=== PATIENT | male | born 1965 | race Caucasian/White ===

== ENCOUNTER 2018-09-17 18:52 | Emergency (ER) | payer MEDICAID ==
[~2018-09-17] VITALS: Ht 182.9 cm; Wt 99.8 kg
[~2018-09-17 18:52] MED LIST: Benadryl 50 mg50 MG PO; Crutch1 EACH MISC; IBUP800 PO; NAPR500 PO; TRAM50 PO
[2018-09-17] MEDS ORDERED: IBUP800 PO (20:59)
== END 2018-09-17 21:03 | disposition home or self-care (01) ==
LOC: ER 18:52
DX: S93.401A Sprain of unspecified ligament of right ankle, initial encounter (principal); X50.9XXA Other and unspecified overexertion or strenuous movements or postures, initial encounter; Z88.5 Allergy status to narcotic agent; Z88.0 Allergy status to penicillin; I10 Essential (primary) hypertension; F17.200 Nicotine dependence, unspecified, uncomplicated
CPT/HCPCS: 73610; 99283-25

== ENCOUNTER 2019-09-06 17:32 | Emergency (ER) | payer OTHER ==
[~2019-09-06] VITALS: Ht 182.9 cm; Wt 109.3 kg
[2019-09-06 18:03] LABS: BASOPHILS ABSOLUTE AUTO 0.09 K/mm3 (0.00-0.23); BASOPHILS PERCENT AUTO 1 % (0-2); EOSINOPHILS ABSOLUTE AUTO 0.39 K/mm3 (0.00-0.68); EOSINOPHILS PERCENT AUTO 4 % (0-6); Hematocrit 47.3 % (37.0-53.0); Hemoglobin 15.6 g/dL (13.5-17.5); IMMATURE GRAN ABSOLUTE AUTO 0.02 K/mm3 (0.00-0.10); IMMATURE GRAN PERCENT AUTO 0 % (0-1); LYMPHOCYTES PERCENT AUTO 24 % (21-46); MONOCYTES ABSOLUTE AUTO 0.85 K/mm3 (0.16-1.47); MONOCYTES PERCENT AUTO 8 % (4-13); Mean Corpuscular HGB 30.2 pg (26.0-34.0); Mean Corpuscular Volume 92 fL (80-100); Mean Platelet Volume 9.8 fL (9.1-12.4); NEUTROPHILS ABSOLUTE AUTO 6.46 K/mm3 (1.96-9.15); NEUTROPHILS PERCENT AUTO 63 % (41-73); Platelet Count 275 K/mm3 (150-400); RDW Coefficient Variation 12.8 % (11.7-14.2); RDW Standard Deviation 43.1 fL (35.1-46.3); Red Blood Cell Count 5.17 M/mm3 (4.30-5.90); White Blood Cell Count 10.21 K/mm3 (4.00-11.30)
[2019-09-06 18:38] LABS: Troponin I 0.107 ng/mL (0.000-0.040)
[2019-09-06 18:39] LABS: Alanine Aminotransfer (ALT/SGP 32 U/L (12-78); Albumin, Blood 3.2 g/dL (3.4-5.0); Albumin/Globulin Ratio 0.8 (0.8-1.8); Alk Phos 103 U/L (50-136); Anion Gap 3 mmol/L (6-16); Aspartate Aminotrans (AST/SGOT 13 U/L (12-37); Bilirubin, Total 0.3 mg/dL (0.1-1.0); Blood Urea Nitrogen 14 mg/dL (8-24); Bun/Creatinine Ratio 12.4 (12.0-20.0); CO2, Blood 29 mmol/L (21-32); Calcium, Blood 8.6 mg/dL (8.5-10.1); Chloride, Blood 108 mmol/L (98-108); Creatinine, Blood 1.13 mg/dL (0.60-1.20); Globulin, Blood 3.8 g/dL (2.2-4.0); Glomerular Filtration Rate >60 (60-); Glucose, Blood 109 mg/dL (70-99); Sodium, Blood 140 mmol/L (136-145)
[2019-09-06] MEDS ORDERED: HYDCHL25 PO (21:57)
== END 2019-09-06 22:05 | disposition home or self-care (01) ==
LOC: ER 17:32
PROVIDERS: Emergency Medicine
DX: I21.4 Non-ST elevation (NSTEMI) myocardial infarction (principal); I10 Essential (primary) hypertension; R79.89 Other specified abnormal findings of blood chemistry; R60.0 Localized edema; Z88.0 Allergy status to penicillin; Z88.5 Allergy status to narcotic agent; Z87.891 Personal history of nicotine dependence
CPT/HCPCS: 36415; 71046; 80053; 83880; 84484; 85025; 93005; 93010; 96374; 99284-25

== ENCOUNTER 2019-10-11 12:45 | Emergency (ER) | payer OTHER ==
[~2019-10-11] VITALS: Ht 182.9 cm; Wt 105.2 kg
[~2019-10-11 12:45] MED LIST changes: +HYDCHL25 PO
[2019-10-11] MEDS ORDERED: ERYT1OIN RIGHTEYE (14:53)
== END 2019-10-11 15:07 | disposition home or self-care (01) ==
LOC: ER 12:45
DX: H10.9 Unspecified conjunctivitis (principal)
CPT/HCPCS: 99283

== ENCOUNTER 2023-03-25 15:24 | Emergency (ER) | payer OTHER ==
[~2023-03-25] VITALS: Ht 182.9 cm; Wt 130.6 kg
[~2023-03-25 15:24] MED LIST changes: -TOPROL XL25 MG PO
[2023-03-25 16:46] LABS: Calcium, Blood 8.7 mg/dL (8.5-10.1); Creatinine, Blood 0.92 mg/dL (0.60-1.20); Potassium, Blood 3.9 mmol/L (3.5-5.5)
[2023-03-25 17:30] VITALS: BP 168/116
[2023-03-25] MEDS ORDERED: TOPROL XL25 MG PO (17:32)
== END 2023-03-25 18:06 | disposition home or self-care (01) ==
LOC: ER 15:24
PROVIDERS: Physician Assistant
DX: I10 Essential (primary) hypertension (principal); R77.8 Other specified abnormalities of plasma proteins; Z88.0 Allergy status to penicillin; Z88.5 Allergy status to narcotic agent; Z79.899 Other long term (current) drug therapy; Z79.82 Long term (current) use of aspirin
CPT/HCPCS: 80048; 84484; 93005; 93010; 99284-25; A9270

== ENCOUNTER → 2023-03-25 | Outpatient (CLI) | payer OTHER ==
[~2023-03-25] MED LIST changes: +ATOR20 PO; +ERYT1OIN RIGHTEYE; +LOW DOSE ASPIRI81 M1 PO; +METOPROLOL TART25 MG PO; +Nitrostat0.3 MG SL; +PRINIVIL10 MG PO; +TOPROL XL25 MG PO
[2023-03-25 13:16] LABS: BASOPHILS ABSOLUTE AUTO 0.09 K/mm3 (0.00-0.23); BASOPHILS PERCENT AUTO 1 % (0-2); EOSINOPHILS ABSOLUTE AUTO 0.25 K/mm3 (0.00-0.68); EOSINOPHILS PERCENT AUTO 3 % (0-6); Hematocrit 48.9 % (37.0-53.0); Hemoglobin 16.7 g/dL (13.5-17.5); IMMATURE GRAN ABSOLUTE AUTO 0.03 K/mm3 (0.00-0.10); IMMATURE GRAN PERCENT AUTO 0 % (0-1); LYMPHOCYTES ABSOLUTE AUTO 2.33 K/mm3 (0.84-5.20); LYMPHOCYTES PERCENT AUTO 27 % (21-46); MONOCYTES ABSOLUTE AUTO 0.72 K/mm3 (0.16-1.47); MONOCYTES PERCENT AUTO 8 % (4-13); Mean Corpuscular HGB 29.6 pg (26.0-34.0); Mean Corpuscular HGB Conc 34.2 g/dL (31.5-36.5); Mean Corpuscular Volume 87 fL (80-100); Mean Platelet Volume 9.9 fL (9.1-12.4); NEUTROPHILS ABSOLUTE AUTO 5.32 K/mm3 (1.96-9.15); NEUTROPHILS PERCENT AUTO 61 % (41-73); Platelet Count 272 K/mm3 (150-400); RDW Coefficient Variation 13.3 % (11.7-14.2); RDW Standard Deviation 41.2 fL (35.1-46.3); Red Blood Cell Count 5.64 M/mm3 (4.30-5.90); White Blood Cell Count 8.74 K/mm3 (4.00-11.30)
[2023-03-25 13:25] LABS: Albumin, Blood 3.4 g/dL (3.4-5.0); Albumin/Globulin Ratio 0.8 (0.8-1.8); Bilirubin, Total 0.6 mg/dL (0.1-1.0); Bun/Creatinine Ratio 10.1 (12.0-20.0); Calcium, Blood 9.1 mg/dL (8.5-10.1); Creatinine, Blood 1.09 mg/dL (0.60-1.20); Globulin, Blood 4.5 g/dL (2.2-4.0); Potassium, Blood 4.2 mmol/L (3.5-5.5); Total Protein, Blood 7.9 g/dL (6.4-8.2)
== END ==
LOC: LAB SHORT 13:03 → LAB 13:03
PROVIDERS: Chiropractor
DX: R53.83 Other fatigue (principal); R60.0 Localized edema; Z68.39 Body mass index [BMI] 39.0-39.9, adult
CPT/HCPCS: 80053; 83036; 83880; 84443; 84484; 85025

== ENCOUNTER 2023-09-10 19:52 | Emergency (ER) | payer OTHER ==
[~2023-09-10] VITALS: Ht 182.9 cm; Wt 116.6 kg
[~2023-09-10 19:52] MED LIST changes: +TOPROL XL25 MG PO
[2023-09-10 20:20] LABS: BASOPHILS ABSOLUTE AUTO 0.05 K/mm3 (0.00-0.23); BASOPHILS PERCENT AUTO 1 % (0-2); EOSINOPHILS ABSOLUTE AUTO 0.29 K/mm3 (0.00-0.68); EOSINOPHILS PERCENT AUTO 3 % (0-6); Hematocrit 46.2 % (37.0-53.0); Hemoglobin 15.2 g/dL (13.5-17.5); IMMATURE GRAN ABSOLUTE AUTO 0.02 K/mm3 (0.00-0.10); IMMATURE GRAN PERCENT AUTO 0 % (0-1); LYMPHOCYTES ABSOLUTE AUTO 0.68 K/mm3 (0.84-5.20); LYMPHOCYTES PERCENT AUTO 8 % (21-46); MONOCYTES ABSOLUTE AUTO 0.69 K/mm3 (0.16-1.47); MONOCYTES PERCENT AUTO 8 % (4-13); Mean Corpuscular HGB 29.5 pg (26.0-34.0); Mean Corpuscular HGB Conc 32.9 g/dL (31.5-36.5); Mean Corpuscular Volume 90 fL (80-100); Mean Platelet Volume 9.7 fL (9.1-12.4); NEUTROPHILS ABSOLUTE AUTO 6.69 K/mm3 (1.96-9.15); NEUTROPHILS PERCENT AUTO 80 % (41-73); Platelet Count 209 K/mm3 (150-400); RDW Standard Deviation 42.5 fL (35.1-46.3); Red Blood Cell Count 5.16 M/mm3 (4.30-5.90); White Blood Cell Count 8.42 K/mm3 (4.00-11.30)
[2023-09-10] MEDS ORDERED: LOSA50 PO (20:25)
[2023-09-10] MEDS ORDERED: METO50ER PO (20:26)
[2023-09-10 20:50] LABS: Albumin, Blood 3.2 g/dL (3.4-5.0); Albumin/Globulin Ratio 0.8 (0.8-1.8); Bilirubin, Total 0.4 mg/dL (0.1-1.0); Bun/Creatinine Ratio 13.7 (12.0-20.0); Calcium, Blood 8.7 mg/dL (8.5-10.1); Creatinine, Blood 0.95 mg/dL (0.60-1.20); Globulin, Blood 4.1 g/dL (2.2-4.0); Total Protein, Blood 7.3 g/dL (6.4-8.2)
[2023-09-10 21:00] VITALS: BP 106/64
[2023-09-10] MEDS ORDERED: Albuterol 2.5 MG/3 ML VIAL INH SCH (21:25)
[2023-09-10 23:10] LABS: Influenza A, PCR NEGATIVE (NEGATIVE); Influenza B, PCR NEGATIVE (NEGATIVE); Resp Syncytial Virus, PCR NEGATIVE (NEGATIVE)
[2023-09-10 23:12] LABS: SARS-Cov-2 (COVID-19) PCR, MMC POSITIVE (NEGATIVE)
== END 2023-09-10 23:20 | disposition left against medical advice (07) ==
LOC: ER 19:52
PROVIDERS: Student in an Organized Health Care Education/Training Program
DX: U07.1 COVID-19 (principal); J06.9 Acute upper respiratory infection, unspecified; I10 Essential (primary) hypertension; F17.210 Nicotine dependence, cigarettes, uncomplicated; Z53.29 Procedure and treatment not carried out because of patient's decision for other reasons; Z88.5 Allergy status to narcotic agent; Z88.0 Allergy status to penicillin; Z79.899 Other long term (current) drug therapy; Z79.82 Long term (current) use of aspirin
CPT/HCPCS: 0241U; 71046; 80053; 83880; 84484; 85025; 93005; 93010; 94644; 94664; 99284-25

== ENCOUNTER → 2024-01-11 | Outpatient (CLI) | payer OTHER ==
[~2024-01-11] MED LIST changes: +LOSA50 PO; +METO50ER PO
[2024-01-11 13:56] LABS: BASOPHILS ABSOLUTE AUTO 0.07 K/mm3 (0.00-0.23); BASOPHILS PERCENT AUTO 1 % (0-2); EOSINOPHILS ABSOLUTE AUTO 0.31 K/mm3 (0.00-0.68); EOSINOPHILS PERCENT AUTO 4 % (0-6); Hematocrit 44.5 % (37.0-53.0); Hemoglobin 14.5 g/dL (13.5-17.5); IMMATURE GRAN ABSOLUTE AUTO 0.02 K/mm3 (0.00-0.10); IMMATURE GRAN PERCENT AUTO 0 % (0-1); LYMPHOCYTES ABSOLUTE AUTO 1.98 K/mm3 (0.84-5.20); LYMPHOCYTES PERCENT AUTO 23 % (21-46); MONOCYTES ABSOLUTE AUTO 0.69 K/mm3 (0.16-1.47); MONOCYTES PERCENT AUTO 8 % (4-13); Mean Corpuscular HGB 29.2 pg (26.0-34.0); Mean Corpuscular HGB Conc 32.6 g/dL (31.5-36.5); Mean Corpuscular Volume 90 fL (80-100); Mean Platelet Volume 10.4 fL (9.1-12.4); NEUTROPHILS ABSOLUTE AUTO 5.74 K/mm3 (1.96-9.15); NEUTROPHILS PERCENT AUTO 65 % (41-73); Platelet Count 258 K/mm3 (150-400); RDW Standard Deviation 42.5 fL (35.1-46.3); Red Blood Cell Count 4.97 M/mm3 (4.30-5.90); White Blood Cell Count 8.81 K/mm3 (4.00-11.30)
[2024-01-11 14:21] LABS: LDL/HDL RATIO 3.2; Very Low Density Lipoprot Chol 20 mg/dL (6-32)
[2024-01-11 14:22] LABS: Alanine Aminotransfer (ALT/SGP 33 U/L (12-78); Albumin, Blood 3.1 g/dL (3.4-5.0); Albumin/Globulin Ratio 0.8 (0.8-1.8); Alk Phos 117 U/L (50-136); Anion Gap 8 mmol/L (3-11); Aspartate Aminotrans (AST/SGOT 17 U/L (12-37); Bilirubin, Total 0.5 mg/dL (0.1-1.0); Blood Urea Nitrogen 10 mg/dL (8-24); CHOL/HDL RATIO 4.8; CO2, Blood 28 mmol/L (21-32); Calcium, Blood 8.7 mg/dL (8.5-10.1); Chloride, Blood 108 mmol/L (98-108); Cholesterol 163 mg/dL (50-200); Creatinine, Blood 0.77 mg/dL (0.60-1.20); Globulin, Blood 4.1 g/dL (2.2-4.0); Glomerular Filtration Rate 104 (60-); Glucose, Blood 208 mg/dL (70-99); HDL Cholesterol 34 mg/dL (>39); Low Density Lipoprotein Chol 109 mg/dL (0-110); Potassium, Blood 3.7 mmol/L (3.5-5.5); Sodium, Blood 140 mmol/L (136-145); Total Protein, Blood 7.2 g/dL (6.4-8.2); Triglycerides 102 mg/dL (30-160)
== END ==
LOC: LAB SHORT 10:00 → LAB 10:00
DX: Z13.220 Encounter for screening for lipoid disorders (principal); I10 Essential (primary) hypertension
CPT/HCPCS: 80053; 80061; 83036; 85025

== ENCOUNTER 2024-04-23 19:47 | Inpatient (IN) | payer OTHER ==
[~2024-04-23] VITALS: Ht 177.8 cm; Wt 125.4 kg
[~2024-04-23 19:47] MED LIST changes: +Lactated Ringer's 1,000 ML IV SCH
[2024-04-23] MEDS ORDERED: Ondansetron HCl 2 MG / ML 2ML Vial IV PRN ×2 (20:15→23:45)
[2024-04-23 20:34] LABS: BASOPHILS ABSOLUTE AUTO 0.08 K/mm3 (0.00-0.23); BASOPHILS PERCENT AUTO 1 % (0-2); EOSINOPHILS ABSOLUTE AUTO 0.16 K/mm3 (0.00-0.68); EOSINOPHILS PERCENT AUTO 1 % (0-6); Hematocrit 48.5 % (37.0-53.0); Hemoglobin 17.2 g/dL (13.5-17.5); IMMATURE GRAN ABSOLUTE AUTO 0.06 K/mm3 (0.00-0.10); IMMATURE GRAN PERCENT AUTO 1 % (0-1); LYMPHOCYTES ABSOLUTE AUTO 2.17 K/mm3 (0.84-5.20); LYMPHOCYTES PERCENT AUTO 17 % (21-46); MONOCYTES ABSOLUTE AUTO 0.76 K/mm3 (0.16-1.47); MONOCYTES PERCENT AUTO 6 % (4-13); Mean Corpuscular HGB 29.5 pg (26.0-34.0); Mean Corpuscular HGB Conc 35.5 g/dL (31.5-36.5); Mean Corpuscular Volume 83 fL (80-100); NEUTROPHILS ABSOLUTE AUTO 9.76 K/mm3 (1.96-9.15); NEUTROPHILS PERCENT AUTO 75 % (41-73); Platelet Count 334 K/mm3 (150-400); RDW Coefficient Variation 13.1 % (11.7-14.2); RDW Standard Deviation 39.3 fL (35.1-46.3); Red Blood Cell Count 5.83 M/mm3 (4.30-5.90); White Blood Cell Count 12.99 K/mm3 (4.00-11.30)
[2024-04-23 21:04] LABS: Albumin, Blood 3.4 g/dL (3.4-5.0); Albumin/Globulin Ratio 0.8 (0.8-1.8); Bilirubin, Total 1.1 mg/dL (0.1-1.0); Bun/Creatinine Ratio 24.5 (12.0-20.0); Calcium, Blood 9.6 mg/dL (8.5-10.1); Creatinine, Blood 1.06 mg/dL (0.60-1.20); Globulin, Blood 4.2 g/dL (2.2-4.0); Potassium, Blood 4.7 mmol/L (3.5-5.5); Total Protein, Blood 7.6 g/dL (6.4-8.2)
[2024-04-23 21:29] LABS: Influenza A, PCR NEGATIVE (NEGATIVE); Influenza B, PCR NEGATIVE (NEGATIVE); Resp Syncytial Virus, PCR NEGATIVE (NEGATIVE); SARS-Cov-2 (COVID-19) PCR, MMC NEGATIVE (NEGATIVE)
[2024-04-23] MEDS ORDERED: NS 1,000 ML IV SCH ×2 (22:15→23:15)
[2024-04-23 22:33] LABS: Base Excess Venous -3.8 mmol/L; Bicarbonate Venous 21.2 mmol/L (24.0-30.0); PCO2 Venous 42.2 mmHg (38-42); pH Blood Venous 7.33 (7.34-7.37)
[2024-04-23 22:36] LABS: Beta-hydroxybutyrate 21.1 mg/dL (0.2-2.8)
[2024-04-23] MEDS ORDERED: NS KCl 20mEq 1,000 ML IV SCH (23:15)
[2024-04-23] MEDS ORDERED: Insulin Human Regular 100 UNIT in NS 100 ML IV SCH (23:20)
[2024-04-23] MEDS ORDERED: Dextrose 50% 50 ML Vial IV PRN (23:45)
[2024-04-23] MEDS ORDERED: Acetaminophen 325 MG TABLET PO PRN (23:55)
[2024-04-23] MEDS ORDERED: FLU VACC TS2024-25(6MOS UP)/PF 45 MCG/0.5 ML SYRINGE IM SCH (23:55)
[2024-04-24] VITALS (33 sets, daily range): BP systolic 97–149; BP diastolic 60–119
[2024-04-24 00:16] LABS: Source, Urine Clean Catch
[2024-04-24 00:22] LABS: Appearance, Urine Clear (Clear); Bilirubin, Urine Neg (Neg); Blood, Urine Neg (Neg); Color, Urine Yellow (P-Yellow); Glucose Qualitative, Urine 4+ (Neg); Ketones, Urine 2+ (Neg); Leukocyte Esterase, Urine Neg (Neg); Nitrite, Urine Neg (Neg); Protein, Urine Neg (Neg); Urobilinogen, Urine NORM (Normal)
[2024-04-24] MEDS ORDERED: ATOR40TA PO (00:51)
[2024-04-24] MEDS ORDERED: DICLOFENAC SOD100 GM TP (00:52)
[2024-04-24 00:53] LABS: Bun/Creatinine Ratio 21.6 (12.0-20.0); Creatinine, Blood 1.11 mg/dL (0.60-1.20); Potassium, Blood 4.9 mmol/L (3.5-5.5)
[2024-04-24] MEDS ORDERED: NITR.4SL SL (00:53)
--- NOTE | 2024-04-24 01:21 | NUR ---
ARRIVAL TO ICU: RECEIVED REPORT FROM KEN ESTRADA. PT ARRIVED TO ICU BED 15 VIA GURNEY AT 0045. PT ABLE TO STAND AND TRANSFER TO ICU BED WITH NURSE ASSIST. PT ALERT AND ORIENTED. FOLLOWS COMMANDS AND ANSWERS QUESTIONS. PT ON RA WITH SPO2 HIGH 90'S. LUNGS CLEAR/DIM. PUPILS EQUAL AND REACTIVE. GRADUATING MACHINE OPERATOR IN PLACE, SR WITH HR 80'S. SBP 110'S-130'S. DENIES CHEST PAIN/PRESSURE. INSULIN DRIP AT 10 UNITS/HR. NS WITH KCL AT 250 ML/HR. NS BOLUS WIDE OPEN. PIVS TO LH AND RAC BOTH PATENT AND INFUSING. PT DENIES N/V OR PAIN. RR 17-20. ABLE TO VOID INTO URINAL. NO BM YET. PT DAUGHTER AT THE BEDSIDE, UPDATED TO PLAN OF CARE. BED LOW AND LOCKED, CALL LIGHT IN REACH. TOLERATING ICE CHIPS.
[2024-04-24 01:30] LABS: Glucose, Blood 564 mg/dL (70-99)
[2024-04-24 02:23] LABS: Glucose, Blood 446 mg/dL (70-99)
[2024-04-24 04:45] LABS: Bun/Creatinine Ratio 24.1 (12.0-20.0); Calcium, Blood 8.8 mg/dL (8.5-10.1); Creatinine, Blood 0.87 mg/dL (0.60-1.20)
[2024-04-24 05:24] LABS: Potassium, Blood 4.3 mmol/L (3.5-5.5)
[2024-04-24] MEDS ORDERED: D5W-1/2NS KCl 20mEq 1,000 ML IV SCH (05:25)
--- NOTE | 2024-04-24 05:30 | NUR ---
SHIFT SUMMARY: NO ACUTE CHANGES SINCE ARRIVAL TO ICU. INSULIN DRIP AT 4 UNITS/HR. D5 1/2 AT 200 ML/HR. REMAINS ALERT AND ORIENTED. PIVS INTACT. DAUGHTER AT BEDSIDE. ABLE TO STAND AT BEDSIDE TO URINATE. NO BM THIS SHIFT. PT IN SR WITH HR 80'S. SBP 120'S. ON RA WITH SPO2 90'S. OCCASIONALLY DESATS TO MID 80'S WHILE SLEEPING BUT DOES NOT SUSTAIN. DENIES SOB, DENIES N/V. TOLERATING ICE CHIPS. BED LOW AND LOCKED, CALL LIGHT IN REACH.
--- NOTE | 2024-04-24 08:40 | NUR ---
SHIFT ASSESSMENT ASSUMED CARE OF PT @ 0700, BEDSIDE REPORT RECEIVED FORM CHANI. INSULIN GTT @ 4.5U/HR AND D5 KCL INFUSING. Q1HR GLUCOSE CHECKS. PT A&OX4, AMBULATES WITH SBA, POSITIONING SELF TO COMFORT. COOPERATIVE BUT NOT HAPPY ABOUT NPO STATUS. THIS RN ENSURED PT THAT HE WILL GET TO EAT SOON. THIS RN ALSO INTRODUCED PT TO THE PARAMETERS OF A DIABETIC FRIENDLY DIET. PT ADMITS TO ENJOYING SUGARY DRINKS REGULARLY. EDGE TRIMMING MACHINE OPERATOR CONSULT ORDERED.
[2024-04-24] MEDS ORDERED: Enoxaparin 40 MG/0.4 ML SYR SC SCH (09:00)
[2024-04-24 09:01] LABS: Bun/Creatinine Ratio 18.6 (12.0-20.0); Calcium, Blood 8.2 mg/dL (8.5-10.1); Creatinine, Blood 1.02 mg/dL (0.60-1.20); Potassium, Blood 3.9 mmol/L (3.5-5.5)
[2024-04-24] MEDS ORDERED: Insulin Glargine-Yfgn 100 Unit/mL 3 ML SYR SC ONE (09:50)
[2024-04-24] MEDS ORDERED: Clindamycin 900mg in D5W 50ML 50 ML IV SCH (10:02)
[2024-04-24] MEDS ORDERED: Insulin Human Lispro 100 Units/ML 3ML Syringe SC SCH (12:00)
[2024-04-24 13:30] LABS: Bun/Creatinine Ratio 19.2 (12.0-20.0); Calcium, Blood 8.1 mg/dL (8.5-10.1); Creatinine, Blood 1.04 mg/dL (0.60-1.20)
[2024-04-24] MEDS ORDERED: Lactated Ringer's 1,000 ML IV SCH (13:50)
[2024-04-24] MEDS ORDERED: MetFORMIN HCl 500 mg PO SCH (17:00)
[2024-04-24 17:03] LABS: Bun/Creatinine Ratio 19.4 (12.0-20.0); Calcium, Blood 8.3 mg/dL (8.5-10.1); Creatinine, Blood 1.03 mg/dL (0.60-1.20); Potassium, Blood 4.2 mmol/L (3.5-5.5)
--- NOTE | 2024-04-24 18:12 | NUR ---
SHIFT SUMMARY PATIENT REMAINS A&OX4, OFF OF INSULIN GTT, TRANSITIONED TO HIGH SS LISPRO Q6HR. PATIENT TOLERATING PO INTAKE WELL. WORKED WITH PHYSICAL THERAPY (PT) THIS AFTERNOON, SEE PT NOTE. ALSO CONSULTED WITH DIETITIAN TODAY, INFORMATION GIVEN FOR DIET CHANGES. USING URINAL, NO BM. NO OTHER ACUTE CHANGES. CURRENTLY MEDICAL STATUS.
--- NOTE | 2024-04-24 23:10 | NUR ---
ASSUMPTION OF CARE/ASSESSMENT: ASSUMED CARE OF PT @ 1900, BEDSIDE SHIFT REPORT RECIEVED FROM AVRIL RN. PT IN ROOM, A&O X 4, COOPERATIVE WITH CARE. FAMILY UPDATED ON TREATMENT PLAN BY AVR[facility] WITH INFORMATION REGARDING POTENTIONAL DISCHARGE TOMORROW. PT EXPRESSES DESIRE TO SPEAK WITH STATION ENGINEER PRIOR TO DISCHARGE; PT'S DAUGHTER PLANS TO BE HERE AROUND 0900 TO SEE ABOUT TALKING WITH STATION ENGINEER. PT ON NC @ 2-5 LPM, SPO2 94<, FREQUENT DESATS OBSERVED DOWN TO 70'S BUT RECOVERS TO 90'S. LUNGS CLEAR T/O, DIM BASES. PT SR ON MONITOR, HR 80-90'S, SBP 140'S, AND DENIES CHEST PAIN/PRESSURE. PT MINIMAL ASSIST IN ROOM WITH ADL'S. URINAL AT BEDSIDE. BED LOWERED, CALL LIGHT IN REACH.
[2024-04-25 03:48] LABS: BASOPHILS ABSOLUTE AUTO 0.07 K/mm3 (0.00-0.23); BASOPHILS PERCENT AUTO 1 % (0-2); EOSINOPHILS ABSOLUTE AUTO 0.25 K/mm3 (0.00-0.68); EOSINOPHILS PERCENT AUTO 3 % (0-6); Hematocrit 42.3 % (37.0-53.0); Hemoglobin 14.4 g/dL (13.5-17.5); IMMATURE GRAN ABSOLUTE AUTO 0.03 K/mm3 (0.00-0.10); IMMATURE GRAN PERCENT AUTO 0 % (0-1); LYMPHOCYTES ABSOLUTE AUTO 2.39 K/mm3 (0.84-5.20); LYMPHOCYTES PERCENT AUTO 30 % (21-46); MONOCYTES ABSOLUTE AUTO 0.64 K/mm3 (0.16-1.47); MONOCYTES PERCENT AUTO 8 % (4-13); Mean Corpuscular Volume 88 fL (80-100); Mean Platelet Volume 10.6 fL (9.1-12.4); NEUTROPHILS ABSOLUTE AUTO 4.69 K/mm3 (1.96-9.15); NEUTROPHILS PERCENT AUTO 58 % (41-73); Platelet Count 191 K/mm3 (150-400); RDW Coefficient Variation 13.1 % (11.7-14.2); RDW Standard Deviation 42.3 fL (35.1-46.3); White Blood Cell Count 8.07 K/mm3 (4.00-11.30)
[2024-04-25 04:09] VITALS: BP 163/101
[2024-04-25 04:11] LABS: Albumin, Blood 2.6 g/dL (3.4-5.0); Albumin/Globulin Ratio 0.8 (0.8-1.8); Bilirubin, Total 0.7 mg/dL (0.1-1.0); Bun/Creatinine Ratio 14.9 (12.0-20.0); Calcium, Blood 8.2 mg/dL (8.5-10.1); Creatinine, Blood 0.94 mg/dL (0.60-1.20); Globulin, Blood 3.3 g/dL (2.2-4.0); Potassium, Blood 4.1 mmol/L (3.5-5.5); Total Protein, Blood 5.9 g/dL (6.4-8.2)
--- NOTE | 2024-04-25 04:14 | NUR ---
CALL TO PT DAUGHTER MARLO TO INFORM OF PT TRANSFER TO NEW ROOM, NO ANSWER. PT STATES HE WILL CALL HER LATER.
--- NOTE | 2024-04-25 04:19 | NUR ---
REPORT FROM FADUMO PATIENT ARRIVED FORM ICU VIA W/C AT 0400. BED ZEROED AND BED WEIGHT OBTAINED. IV PLACED ON PUMP AT ORDERED RATE. ALERT ORIENTED, CALL LIGHT NEAR. BED ALARM ON.
[2024-04-25] MEDS ORDERED: Losartan Potassium 25 MG Tab PO ONE (07:00)
[2024-04-25 07:26] VITALS: BP 147/99
[2024-04-25] MEDS ORDERED: Atorvastatin 40 MG Tab PO SCH (09:00)
[2024-04-25] MEDS ORDERED: Losartan Potassium 50 MG Tab PO SCH (09:00)
[2024-04-25] MEDS ORDERED: Metoprolol Succinate 50 MG TABCR PO SCH ×2 (09:00→21:00)
[2024-04-25] MEDS ORDERED: Aspirin 81 MG Chew PO SCH (09:00)
[2024-04-25] MEDS ORDERED: Lactobacil 2-S.Thermo-Bifido 1 1 Cap PO SCH (09:00)
[2024-04-25] MEDS ORDERED: Losartan Potassium 25 MG Tab PO SCH ×2 (09:00)
[2024-04-25] MEDS ORDERED: Metoprolol Succinate 25 MG TABCR PO SCH (09:00)
[2024-04-25] MEDS ORDERED: Insulin Human Lispro 100 Units/ML 3ML Syringe SC SCH ×3 (09:10→11:30)
[2024-04-25 10:28] VITALS: BP 113/98
[2024-04-25] MEDS ORDERED: CLIN150 PO (15:16)
[2024-04-25] MEDS ORDERED: VISBIOME 112.51 EACH PO (15:16)
[2024-04-25] MEDS ORDERED: METF500 PO (15:17)
--- NOTE | 2024-04-25 15:48 | NUR ---
DISCHARGE NOTE PT DISCHARGED HOME AT 1545. PT AND PT'S DAUGHTER PROVIDED W/ VERBAL AND WRITTEN INSTRUCTIONS AND REPORTED UNDERSTANDING. PT A&OX4, VSS. AMB W/ SBA, TOLERATING PO, VOIDING, AND DENIED PAIN. BELONGINGS WERE RETURNED AND PT ESCOURTED OUT BY DAUGHTER VIA W/C.
[2024-04-26] MEDS ORDERED: Losartan Potassium 25 MG Tab PO SCH (09:00)
== END 2024-04-25 15:44 | disposition home health service (06) | DRG 638 ==
LOC: ER 19:47 → ICUE 23:54 → MEDS 04-25 03:55
PROVIDERS: Emergency Medicine; Internal Medicine; Student in an Organized Health Care Education/Training Program; ADMIT Student in an Organized Health Care Education/Training Program
DX: E11.10 Type 2 diabetes mellitus with ketoacidosis without coma (principal); Z68.41 Body mass index [BMI] 40.0-44.9, adult; K04.7 Periapical abscess without sinus; I10 Essential (primary) hypertension; F10.20 Alcohol dependence, uncomplicated; E86.0 Dehydration; Z91.81 History of falling; Z87.891 Personal history of nicotine dependence; Z98.890 Other specified postprocedural states; Z88.0 Allergy status to penicillin; Z88.8 Allergy status to other drugs, medicaments and biological substances; Z79.899 Other long term (current) drug therapy; Z79.82 Long term (current) use of aspirin
CPT/HCPCS: 0241U; 36415; 80048; 80053; 81003; 82010; 82803; 82947; 83036; 83690; 83735; 84100; 85025; 93005; 93010; 96361; 96374; 97110; 97116; 97162; 97530; 99285-25; A9270; J1650; J1815; J2405; J3480; J7030; J7120

== ENCOUNTER 2024-07-05 07:49 | Day surgery (SDC) | payer OTHER ==
[~2024-07-05] VITALS: Ht 182.9 cm; Wt 129.6 kg
[~2024-07-05 07:49] MED LIST changes: +ATOR40TA PO; +BASAGLAR K100 UNIT/1 SC; +CLIN150 PO; +DICLOFENAC SOD100 GM TP; +Isosorbide Mono30 MG PO; -Lactated Ringer's 1,000 ML IV SCH; +METF500 PO; +METO25ER PO; -METO50ER PO; +NITR.4SL SL; +VISBIOME 112.51 EACH PO
[2024-07-05] MEDS ORDERED: Verapamil HCL 2.5 MG/ML 2ML Injection ONE (07:56)
[2024-07-05] MEDS ORDERED: Heparin Sodium 1000 Units/ML 10ML MDV ONE ×2 (07:57→09:33)
[2024-07-05] MEDS ORDERED: NS 1,000 ML IV ONE ×2 (07:57→08:49)
[2024-07-05] MEDS ORDERED: NS 250 ML IV ONE (07:57)
[2024-07-05] MEDS ORDERED: Nitroglycerin 2 MG/20 ML BTL ONE (07:57)
[2024-07-05 08:23] VITALS: BP 148/115
[2024-07-05] MEDS ORDERED: FentaNYL Citrate 50 MCG/ML 2 ML Injection ONE (08:49)
[2024-07-05] MEDS ORDERED: Midazolam HCl 1MG / ML 2ML Vial ONE (08:49)
[2024-07-05] MEDS ORDERED: METF500C PO (09:10)
[2024-07-05] MEDS ORDERED: ASPI325 PO (09:10)
[2024-07-05 10:00] VITALS: BP 100/72
--- NOTE | 2024-07-05 10:00 | NUR ---
PT ARRIVES BACK TO RECOVERY ROOM UP IN RECLINER, TR BAND TO RIGHT RADIAL WITH 10CC OF AIR IN BAND. PT. ALERT AND ORIENTED, VSS UPON ARRIVAL. SITE WNL, NO OOZING OR SWELLING NOTED, DISTAL CAP REFILL WNL. PT. DENIES ANY CHEST PAIN OR PRESSURE. PT. PROVIDED WITH WATER AND BREAKFAST PER REQUEST. DR. DELGADILLO AT BEDSIDE TO UPDATE PT ON PLAN OF CARE.
[2024-07-05 10:15] VITALS: BP 106/83
[2024-07-05] MEDS ORDERED: ASPI81CH PO (10:20)
[2024-07-05] MEDS ORDERED: LOSARTAN-HCTZ1 EACH PO (10:21)
[2024-07-05] MEDS ORDERED: Amlodipine Bes2.5 MG PO (10:21)
[2024-07-05 10:30] VITALS: BP 92/71
[2024-07-05 11:00] VITALS: BP 103/72
--- NOTE | 2024-07-05 11:15 | NUR ---
TR BAND DEFLATION INTIATED. PT. NEW PRESCRIPTIONS CALLED INTO [facility] PER PT REQUEST. PT. VSS REMAIN STABLE. RIGHT RADIAL SITE REMAINS WNL, NO OOZING NO HEMATOMA AT THIS ITME.
--- NOTE | 2024-07-05 11:23 | NUR ---
ALL AIR DEFLATED FROM TR BAND. NO OOZING OR SWELLING PT. DAUGHTER CALLED TO UPDATE ON TIMING FOR DISCHARGE, SHE WILL PICK PT UP AT 1215
[2024-07-05 11:30] VITALS: BP 105/86
--- NOTE | 2024-07-05 11:49 | NUR ---
DISHCARGE INSTRUCTIONS REVIEWED IN DETAIL INCLUDING MEDICATION CHANGES. PT. IV REMOVED CATHTER INTACT. RIGHT RADIAL SITE REMAINS WNL, NO OOZING OR SWELLING AT THIS TIME. PT. VSS REMAIN STABLE. PT ABLE TO GET SELF DRESSED.
--- NOTE | 2024-07-05 11:57 | NUR ---
AFTER PT WAS DRESSED, TR BAND REMOVED, SITE WNL, NO OOZING OR SWELLING. BANDAGE PLACED AND ARM BOARD IN PLACE. IV REMOVED CATHETER INTACT. ALL BELONGINGS AND DISCHARGE INSTRUCTIONS TAKEN WITH PT TO EXIT.
== END 2024-07-05 12:15 | disposition home or self-care (01) ==
LOC: MHTC 07:49
PROC: 4A023N7 Measurement of Cardiac Sampling and Pressure, Left Heart, Percutaneous Approach (ICD-10-PCS; principal; 2024-07-05)
PROC: B2151ZZ Fluoroscopy of Left Heart using Low Osmolar Contrast (ICD-10-PCS; principal; 2024-07-05)
PROC: B245ZZ3 Ultrasonography of Left Heart, Intravascular (ICD-10-PCS; principal; 2024-07-05)
DX: I25.119 Atherosclerotic heart disease of native coronary artery with unspecified angina pectoris (principal); E11.9 Type 2 diabetes mellitus without complications; I10 Essential (primary) hypertension; E78.5 Hyperlipidemia, unspecified; E66.9 Obesity, unspecified; I25.2 Old myocardial infarction; Z68.39 Body mass index [BMI] 39.0-39.9, adult; Z87.891 Personal history of nicotine dependence; Z79.82 Long term (current) use of aspirin; Z79.899 Other long term (current) drug therapy; Z88.5 Allergy status to narcotic agent; Z88.0 Allergy status to penicillin
CPT/HCPCS: 76937; 92978; 93458; 99152; 99153; C1753; C1769; C1887; C1894; J1644; J2250; J3010; J7030; J7050; Q9967